=== PATIENT | male | born 1970 | race Caucasian/White ===

== ENCOUNTER 2020-05-26 14:18 | Observation (INO) ==
[2020-05-26] MEDS ORDERED: SODIUM CHLORIDE 0.9% 1,000 ML IV STA (14:41)
[2020-05-26 14:54] LABS: Basophils # 0.1 10*3/uL (0.0-0.2); Basophils % 0.5 % (0.0-0.8); Eosinophils # 0.3 10*3/uL (0.0-0.87); Eosinophils % 1.3 % (0.00-10.9); Hematocrit 44.8 VOL% (42.0-52.0); Hemoglobin 15.1 GM/DL (14.0-18.0); Immature Granulocytes % 0.9 %; Immature Granulocytes Absolute 0.17 #; Lymphocytes # 2.2 10*3/uL (1.4-4.0); Lymphocytes % 11.3 % (21.2-54.2); Mean Corpuscular HGB Conc 33.7 GM/DL (32-36); Mean Corpuscular Volume 86.7 FL (87-102); Mean Platelet Volume 10.8 FL (9.6-12.0); Monocytes % 6.2 % (1.7-12.7); Neutrophils % 79.8 % (38.7-73.9); Platelet Count 288 T/CUMM (130-400); Red Blood Count 5.17 MC/CUMM (3.8-5.5); Red Cell Distribution Width 14.2 % (9.3-17.3); White Blood Count 19.6 T/CUMM (4-12)
[2020-05-26] MEDS ORDERED: SODIUM CHLORIDE 0.9% 1,000 ML IV PRN ×3 (14:56→19:42)
[2020-05-26] MEDS ORDERED: SUCCINYLCHOLINE 200 MG/10 ML VIAL ONE ×2 (15:02→20:36)
[2020-05-26] MEDS ORDERED: LIDOCAINE 2% 5 ML VIAL ONE ×2 (15:02→20:36)
[2020-05-26] MEDS ORDERED: propofoL 200 MG/20 ML VIAL IV ONE ×2 (15:02→20:36)
[2020-05-26] MEDS ORDERED: ROCURONIUM 50 MG/5 ML VIAL IV ONE ×2 (15:02→20:36)
[2020-05-26] MEDS ORDERED: DEXAMETHASONE 4 MG/1 ML VIAL ONE (15:02)
[2020-05-26] MEDS ORDERED: ONDANSETRON 4 MG/2 ML VIAL ONE ×2 (15:02→20:36)
[2020-05-26] MEDS ORDERED: fentaNYL 100 MCG/2 ML VIAL ONE (15:03)
[2020-05-26] MEDS ORDERED: CIPROFLOXACIN INJ 400 MG in PREMIX 1 EACH IV STA (15:05)
[2020-05-26] MEDS ORDERED: MIDAZOLAM 2 MG/2 ML VIAL ONE (15:06)
[2020-05-26] MEDS ORDERED: CIPROFLOXACIN 400 MG/200 ML PREMIX IV ONE (15:09)
[2020-05-26] MEDS ORDERED: SCOPOLAMINE 1.5 MG PATCH TRANSDERM ONE (15:10)
[2020-05-26 15:25] LABS: Calcium 9.4 MG/DL (8.5-10.1); Osmolality,Calculated 281.7 MOS/KG (273-304); Potassium 3.9 MMOL/L (3.5-5.1)
[2020-05-26] MEDS ORDERED: ONDANSETRON 4 MG/2 ML VIAL IV PRN (15:53)
[2020-05-26] MEDS ORDERED: diphenhydrAMINE 50 MG/1 ML VIAL IV PRN (15:53)
[2020-05-26] MEDS ORDERED: PROMETHAZINE INJ 25 MG in SODIUM CHLORIDE 0.9% 50 ML IV PRN (15:53)
[2020-05-26] MEDS ORDERED: ALBUMIN 25% 25 GM/100 ML VIAL IV ONE (15:57)
[2020-05-26] MEDS ORDERED: CALCIUM CHLORIDE 1,000 MG/10 ML VIAL IV ONE (16:01)
[2020-05-26 16:20] LABS: Hematocrit 34.4 VOL% (42.0-52.0); Hemoglobin 11.6 GM/DL (14.0-18.0)
[2020-05-26] MEDS ORDERED: PROMETHAZINE 25 MG/1 ML VIAL ONE ×2 (16:37→20:36)
[2020-05-26] MEDS ORDERED: SEVOFLURANE 1 UNIT/15 MINUTE INH ONE ×2 (16:37→20:36)
[2020-05-26] MEDS ORDERED: LACTATED RINGERS 2,000 ML IV ONE (16:38)
[2020-05-26] MEDS ORDERED: MEPERIDINE 25 MG/1 ML VIAL ONE ×2 (16:45→17:50)
[2020-05-26] MEDS: MEPERIDINE 25 MG/1 ML VIAL IV PRN ×2 (16:50→18:00)
[2020-05-26] MEDS ORDERED: LACTATED RINGERS 1,000 ML IV SCH (17:00)
[2020-05-26 18:09] LABS: Hemoglobin 12.5 GM/DL (14.0-18.0)
[2020-05-26] MEDS ORDERED: HYDROmorphone 2 MG/1 ML VIAL ONE (18:09)
[2020-05-26] MEDS: HYDROmorphone 2 MG/1 ML VIAL IV PRN ×4 (18:15→18:30)
[2020-05-26 18:24] LABS: Hematocrit 32.6 VOL% (42.0-52.0)
[2020-05-26] MEDS ORDERED: TRANEXAMIC ACID 1,000 MG/10 ML VIAL ONE (20:30)
[2020-05-26] MEDS ORDERED: NEOSTIGMINE 10 MG/10 ML VIAL ONE (21:04)
[2020-05-26] MEDS ORDERED: GLYCOPYRROLATE 0.4 MG/2 ML VIAL ONE (21:04)
[2020-05-26] MEDS ORDERED: LABETALOL 20 MG/4 ML SYRINGE IV ONE (21:05)
[2020-05-26] MEDS ORDERED: LABETALOL 100 MG/20 ML VIAL IV ONE (21:26)
[2020-05-26 21:58] LABS: Hematocrit 36.3 VOL% (42.0-52.0); Hemoglobin 12.1 GM/DL (14.0-18.0)
[2020-05-26] MEDS: LACTATED RINGERS 1,000 ML IV SCH (22:26)
[2020-05-26 23:28] LABS: Hematocrit 35.8 VOL% (42.0-52.0); Hemoglobin 12.1 GM/DL (14.0-18.0)
[2020-05-26] MEDS: HYDROmorphone 2 MG TABLET PO PRN (23:55)
[2020-05-27] MEDS: LACTATED RINGERS 1,000 ML IV SCH ×4 (03:00→18:00)
[2020-05-27] MEDS: HYDROmorphone 2 MG TABLET PO PRN (04:02)
[2020-05-27] MEDS: HYDROmorphone 2 MG/1 ML VIAL IV PRN ×4 (05:37→16:39)
[2020-05-27 05:49] LABS: Hematocrit 31.5 VOL% (42.0-52.0); Hemoglobin 10.7 GM/DL (14.0-18.0)
[2020-05-27] MEDS: PROMETHAZINE INJ 25 MG in SODIUM CHLORIDE 0.9% 50 ML IV PRN ×2 (09:01→16:15)
[2020-05-27 10:14] LABS: Hematocrit 29.3 VOL% (42.0-52.0); Hemoglobin 9.9 GM/DL (14.0-18.0)
[2020-05-27 16:14] VITALS: BP 122/69
== END 2020-05-27 19:20 | disposition home or self-care (01) ==
LOC: N.ED 14:18 → N.3E 14:18 → N.ED 14:18 → N.3E 15:24 → UNDODEPER 15:25 → N.ED 15:25 → N.3E 15:25
PROVIDERS: ADMIT Specialist; ATTEND Specialist

== ENCOUNTER 2021-07-21 10:23 | Observation (INO) ==
[2021-07-21] MEDS ORDERED: ONDANSETRON 4 MG/2 ML VIAL IV STA (10:57)
[2021-07-21] MEDS ORDERED: SODIUM CHLORIDE 0.9% 1,000 ML IV STA (10:57)
[2021-07-21] MEDS ORDERED: PANTOPRAZOLE INJ 80 MG in SODIUM CHLORIDE 0.9% 100 ML IV STA (10:57)
[2021-07-21] MEDS ORDERED: PANTOPRAZOLE 40 MG VIAL IV ONE (11:03)
[2021-07-21 11:29] LABS: Basophils # 0.2 10*3/uL (0.0-0.2); Eosinophils # 0.2 10*3/uL (0.0-0.87); Eosinophils % 1.4 % (0.00-10.9); Hematocrit 51.2 VOL% (42.0-52.0); Hemoglobin 16.4 GM/DL (14.0-18.0); Immature Granulocytes % 4.2 %; Lymphocytes # 3.3 10*3/uL (1.4-4.0); Lymphocytes % 19.5 % (21.2-54.2); Mean Corpuscular Volume 82.6 FL (87-102); Mean Platelet Volume 11.6 FL (9.6-12.0); Monocytes % 9.1 % (1.7-12.7); NRBC # 0.02 10*3/uL; Neutrophils % 64.8 % (38.7-73.9); Platelet Count 263 T/CUMM (130-400); Red Cell Distribution Width 16.1 % (9.3-17.3); White Blood Count 16.8 T/CUMM (4-12)
[2021-07-21 11:42] LABS: INR 1.1; PT Patient Result 11.7 SECS (10.5-12.0); Partial Thromboplastin Time 21.7 SECS (23.8-32.1)
[2021-07-21 11:46] LABS: Albumin 3.4 G/DL (3.4-5.0); Bilirubin,Total 0.6 MG/DL (0.20-1.00); Calcium 8.2 MG/DL (8.5-10.1); Potassium 4.5 MMOL/L (3.5-5.1); Total Protein 6.5 G/DL (6.4-8.2)
[2021-07-21] MEDS ORDERED: HYDROmorphone 2 MG/1 ML VIAL IV STA (12:13)
[2021-07-21] MEDS ORDERED: HYDROmorphone 2 MG/1 ML VIAL ONE (12:14)
[2021-07-21 12:16] LABS: Band Neutrophils 4 % (0-10); Eosinophils 4 % (0-10); Lymphocytes 23 % (20-55); Metamyelocytes 1 %; Platelet Estimate Normal; Segmented Neutrophils 61 % (50-85); Total Cells Counted 100
[2021-07-21] MEDS ORDERED: ACETAMINOPHEN 325 MG TABLET PO PRN (12:42)
[2021-07-21] MEDS ORDERED: GLUCAGON 1 MG VIAL IM PRN (12:42)
[2021-07-21] MEDS ORDERED: DEXTROSE 10% 250 ML BAG IV PRN (12:52)
[2021-07-21] MEDS: LACTATED RINGERS 1,000 ML IV SCH ×2 (14:18→19:00)
[2021-07-21] MEDS: SODIUM CHLORIDE 0.9% 1,000 ML IV SCH ×2 (15:06→15:19)
[2021-07-21 15:48] LABS: Basophils # 0.1 10*3/uL (0.0-0.2); Basophils % 0.8 % (0.0-0.8); Eosinophils # 0.2 10*3/uL (0.0-0.87); Hematocrit 44.3 VOL% (42.0-52.0); Hemoglobin 13.9 GM/DL (14.0-18.0); Immature Granulocytes % 3.9 %; Immature Granulocytes Absolute 0.66 #; Lymphocytes # 3.6 10*3/uL (1.4-4.0); Lymphocytes % 21.5 % (21.2-54.2); Mean Corpuscular HGB Conc 31.4 GM/DL (32-36); Mean Platelet Volume 12.1 FL (9.6-12.0); Monocytes % 10.3 % (1.7-12.7); NRBC # 0.05 10*3/uL; Neutrophils % 62.5 % (38.7-73.9); Platelet Count 305 T/CUMM (130-400); Red Blood Count 5.21 MC/CUMM (3.8-5.5); Red Cell Distribution Width 15.4 % (9.3-17.3); White Blood Count 16.8 T/CUMM (4-12)
[2021-07-21 16:32] LABS: Eosinophils 1 % (0-10); Lymphocytes 23 % (20-55); Segmented Neutrophils 74 % (50-85); Total Cells Counted 100
[2021-07-21 16:33] LABS: Anisocytosis Slight; Hypochromia Slight; Platelet Estimate Normal; Polychromasia Slight
[2021-07-21 18:15] VITALS: BP 114/76
[2021-07-21] MEDS: HYDROmorphone 2 MG/1 ML VIAL IV PRN ×2 (20:18→23:19)
[2021-07-21] MEDS: PANTOPRAZOLE 40 MG VIAL IV SCH (20:20)
[2021-07-21 21:19] LABS: Hematocrit 46.2 VOL% (42.0-52.0); Hemoglobin 14.6 GM/DL (14.0-18.0)
[2021-07-22 01:39] LABS: Hematocrit 45.8 VOL% (42.0-52.0); Hemoglobin 14.3 GM/DL (14.0-18.0)
[2021-07-22] MEDS: HYDROmorphone 2 MG/1 ML VIAL IV PRN ×3 (03:08→10:20)
[2021-07-22 06:16] LABS: INR 1.1; PT Patient Result 12.5 SECS (10.5-12.0); Partial Thromboplastin Time 26.5 SECS (23.8-32.1)
[2021-07-22 06:21] LABS: Basophils # 0.1 10*3/uL (0.0-0.2); Basophils % 0.6 % (0.0-0.8); Eosinophils # 0.2 10*3/uL (0.0-0.87); Eosinophils % 1.3 % (0.00-10.9); Hematocrit 49.3 VOL% (42.0-52.0); Hemoglobin 15.1 GM/DL (14.0-18.0); Immature Granulocytes % 2.8 %; Immature Granulocytes Absolute 0.48 #; Lymphocytes % 17.1 % (21.2-54.2); Mean Corpuscular HGB Conc 30.6 GM/DL (32-36); Mean Corpuscular Volume 86.3 FL (87-102); Mean Platelet Volume 12.4 FL (9.6-12.0); Monocytes % 8.8 % (1.7-12.7); Neutrophils % 69.4 % (38.7-73.9); Platelet Count 191 T/CUMM (130-400); Red Blood Count 5.71 MC/CUMM (3.8-5.5); Red Cell Distribution Width 15.9 % (9.3-17.3); White Blood Count 17.5 T/CUMM (4-12)
[2021-07-22 06:27] LABS: Albumin 2.9 G/DL (3.4-5.0); Bilirubin,Total 0.6 MG/DL (0.20-1.00); Calcium 7.8 MG/DL (8.5-10.1); Osmolality,Calculated 281.7 MOS/KG (273-304); Potassium 4.1 MMOL/L (3.5-5.1); Total Protein 5.7 G/DL (6.4-8.2)
[2021-07-22] MEDS: PANTOPRAZOLE 40 MG VIAL IV SCH ×2 (09:17→21:09)
[2021-07-22] MEDS ORDERED: SERTRALINE 100 MG TABLET PO SCH ×2 (10:00→21:00)
[2021-07-22] MEDS: METOPROLOL SUCCINATE XL 25 MG TABLET PO SCH (10:15)
[2021-07-22] MEDS: LACTATED RINGERS 1,000 ML IV SCH ×3 (10:28→14:17)
[2021-07-22 10:42] LABS: Hematocrit 44.6 VOL% (42.0-52.0); Hemoglobin 13.9 GM/DL (14.0-18.0)
[2021-07-22] MEDS ORDERED: diphenhydrAMINE CAP 25 MG CAPSULE PO PRN (11:09)
[2021-07-22] MEDS: SODIUM CHLORIDE 0.9% 1,000 ML IV SCH (14:17)
[2021-07-22 17:18] LABS: Hematocrit 50.3 VOL% (42.0-52.0); Hemoglobin 15.5 GM/DL (14.0-18.0)
[2021-07-22] MEDS ORDERED: TAMSULOSIN 0.4 MG CAPSULE PO SCH (21:00)
[2021-07-22] MEDS ORDERED: HYDROmorphone 2 MG/1 ML VIAL IV ONE (21:22)
[2021-07-22 22:47] LABS: Hematocrit 42.7 VOL% (42.0-52.0); Hemoglobin 13.6 GM/DL (14.0-18.0)
[2021-07-23 05:56] LABS: Basophils # 0.1 10*3/uL (0.0-0.2); Basophils % 0.6 % (0.0-0.8); Eosinophils # 0.3 10*3/uL (0.0-0.87); Eosinophils % 2.8 % (0.00-10.9); Hemoglobin 13.8 GM/DL (14.0-18.0); Immature Granulocytes % 2.4 %; Immature Granulocytes Absolute 0.26 #; Lymphocytes # 2.2 10*3/uL (1.4-4.0); Mean Corpuscular HGB Conc 31.4 GM/DL (32-36); Mean Corpuscular Volume 84.3 FL (87-102); Monocytes % 8.3 % (1.7-12.7); Neutrophils % 65.9 % (38.7-73.9); Platelet Count 205 T/CUMM (130-400); Red Blood Count 5.22 MC/CUMM (3.8-5.5); Red Cell Distribution Width 15.1 % (9.3-17.3); White Blood Count 10.9 T/CUMM (4-12)
[2021-07-23 05:58] LABS: INR 1.1; PT Patient Result 11.7 SECS (10.5-12.0)
[2021-07-23 06:22] LABS: Calcium 8.4 MG/DL (8.5-10.1); Potassium 3.7 MMOL/L (3.5-5.1)
[2021-07-23] MEDS ORDERED: ROSUVASTATIN 20 MG TABLET PO SCH ×2 (09:00→21:00)
[2021-07-23] MEDS: PANTOPRAZOLE 40 MG VIAL IV SCH (09:20)
[2021-07-23] MEDS: METOPROLOL SUCCINATE XL 25 MG TABLET PO SCH (09:20)
[2021-07-23] MEDS: SODIUM CHLORIDE 0.9% 1,000 ML IV SCH ×2 (10:26→10:29)
== END 2021-07-23 14:06 | disposition home or self-care (01) ==
LOC: N.EDINP 10:23 → N.ED 10:23 → SUATTDRO 12:42 → N.ICU 18:23
PROVIDERS: ADMIT Internal Medicine; ATTEND Internal Medicine

== ENCOUNTER 2022-05-06 17:59 | Observation (INO) ==
[2022-05-06 18:32] LABS: Basophils % 0.2 % (0.0-0.8); Eosinophils % 0.2 % (0.00-10.9); Hemoglobin 15.6 GM/DL (14.0-18.0); Immature Granulocytes % 1.1 %; Immature Granulocytes Absolute 0.14 #; Lymphocytes # 0.3 10*3/uL (1.4-4.0); Lymphocytes % 2.1 % (21.2-54.2); Mean Corpuscular HGB Conc 33.2 GM/DL (32-36); Mean Corpuscular Volume 86.1 FL (87-102); Mean Platelet Volume 11.1 FL (9.6-12.0); Monocytes # 0.2 10*3/uL (0.11-0.8); Monocytes % 1.2 % (1.7-12.7); Neutrophils % 95.2 % (38.7-73.9); Platelet Count 215 T/CUMM (130-400); Red Blood Count 5.46 MC/CUMM (3.8-5.5); Red Cell Distribution Width 13.2 % (9.3-17.3)
[2022-05-06 18:40] LABS: PT Patient Result 10.9 SECS (10.1-12.1); Partial Thromboplastin Time 24.5 SECS (23.7-32.9)
[2022-05-06] MEDS ORDERED: SODIUM CHLORIDE 0.9% 1,000 ML IV STA (18:46)
[2022-05-06] MEDS ORDERED: ONDANSETRON 4 MG/2 ML VIAL IV STA (18:48)
[2022-05-06 18:49] LABS: Alanine Aminotransferase 31 U/L (16-61); Albumin 3.6 G/DL (3.4-5.0); Alkaline Phosphatase 69 U/L (45-117); Aspartate Amino Transferase 20 U/L (0-37); Blood Urea Nitrogen 18 MG/DL (7-18); Calcium 8.9 MG/DL (8.5-10.1); Carbon Dioxide 27 MMOL/L (21-32); Chloride 109 MMOL/L (98-107); Glucose 93 MG/DL (74-106); Osmolality,Calculated 282.3 MOS/KG (273-304); Potassium 3.9 MMOL/L (3.5-5.1); Sodium 141 MMOL/L (136-145); Total Protein 6.6 G/DL (6.4-8.2)
[2022-05-06 19:06] LABS: Lymphocytes 3 % (20-55); Total Cells Counted 100
[2022-05-06 19:07] LABS: Platelet Estimate Normal
[2022-05-06] MEDS ORDERED: PROMETHAZINE 25 MG/1 ML VIAL ONE (19:16)
[2022-05-06] MEDS ORDERED: MORPHINE 2 MG/1 ML SYRINGE ONE (19:16)
[2022-05-06] MEDS ORDERED: MORPHINE 2 MG/1 ML SYRINGE IV STA (19:21)
[2022-05-06] MEDS ORDERED: PROMETHAZINE 25 MG/1 ML VIAL IM STA (19:22)
[2022-05-06] MEDS ORDERED: MAGNESIUM SULF RIDER 2 GM/50 ML PREMIX IV STA (19:28)
[2022-05-06 19:36] LABS: Hyaline Casts,Urine 19 /LPF (0-3); Mucus,Urine Few /LPF (Occasional); RBC,Urine 2 /HPF (0-4)
[2022-05-06 19:37] LABS: Bilirubin,Urine Negative (Negative); Blood, Urine Negative (Negative); Glucose,Urine (UA) Negative (Negative); Ketones,Urine Trace mg/dL (Negative); Nitrite,Urine Negative (Negative); Protein,Urine Negative (Negative); Urine Appearance Clear (Clear); Urine Color Yellow (Yellow); Urine Specific Gravity >= 1.030 (1.001-1.035); Urine Urobilinogen 0.2 eU/dL (<2.0); Urine pH 5.5 (4.5-8.0)
[2022-05-06] MEDS ORDERED: LACTATED RINGERS 1,000 ML IV ONE (20:11)
[2022-05-06] MEDS ORDERED: metroNIDAZOLE INJ 500 MG/100 ML PREMIX IV STA (21:22)
[2022-05-06] MEDS ORDERED: NOREPINEPHRINE 8 MG in SODIUM CHLORIDE 0.9% 242 ML IV PRN (21:22)
[2022-05-06] MEDS ORDERED: NOREPINEPHRINE 4 MG/4 ML VIAL IV ONE (21:27)
[2022-05-06] MEDS: LEVOFLOXACIN INJ 750 MG/150 ML PREMIX IV STA ×2 (21:40→23:29)
[2022-05-06 21:51] VITALS: BP 121/80
[2022-05-06] MEDS ORDERED: MORPHINE 2 MG/1 ML SYRINGE IV PRN (22:11)
[2022-05-06] MEDS ORDERED: PROMETHAZINE 25 MG/1 ML VIAL IM PRN (22:11)
[2022-05-06] MEDS ORDERED: ACETAMINOPHEN 325 MG TABLET PO PRN (22:11)
[2022-05-06] MEDS ORDERED: SODIUM CHLORIDE 0.9% 1,000 ML IV ONE (22:27)
[2022-05-06] MEDS ORDERED: DOCUSATE SODIUM 100 MG CAPSULE PO SCH (22:30)
[2022-05-06] MEDS ORDERED: ONDANSETRON 4 MG/2 ML VIAL IV PRN (22:36)
[2022-05-06] MEDS ORDERED: cefTRIAXone 1,000 MG in SODIUM CHLORIDE 0.9% 100 ML IV SCH (23:00)
[2022-05-07] MEDS: SODIUM CHLORIDE 0.9% 1,000 ML IV SCH ×2 (00:45→06:11)
[2022-05-07] MEDS ORDERED: metroNIDAZOLE INJ 500 MG/100 ML PREMIX IV SCH (05:00)
[2022-05-07 05:15] LABS: Basophils # 0.1 10*3/uL (0.0-0.2); Basophils % 0.4 % (0.0-0.8); Eosinophils # 0.3 10*3/uL (0.0-0.87); Eosinophils % 1.6 % (0.00-10.9); Hematocrit 41.6 VOL% (42.0-52.0); Hemoglobin 13.7 GM/DL (14.0-18.0); Immature Granulocytes % 0.6 %; Immature Granulocytes Absolute 0.09 #; Lymphocytes # 0.8 10*3/uL (1.4-4.0); Lymphocytes % 5.2 % (21.2-54.2); Mean Corpuscular HGB Conc 32.9 GM/DL (32-36); Mean Corpuscular Volume 86.8 FL (87-102); Mean Platelet Volume 11.2 FL (9.6-12.0); Monocytes # 1.3 10*3/uL (0.11-0.8); Monocytes % 8.3 % (1.7-12.7); Neutrophils % 83.9 % (38.7-73.9); Platelet Count 209 T/CUMM (130-400); Red Blood Count 4.79 MC/CUMM (3.8-5.5); Red Cell Distribution Width 13.2 % (9.3-17.3); White Blood Count 15.5 T/CUMM (4-12)
[2022-05-07 05:51] LABS: Bilirubin,Total 0.4 MG/DL (0.20-1.00); Calcium 8.1 MG/DL (8.5-10.1); Osmolality,Calculated 285.8 MOS/KG (273-304); Potassium 3.9 MMOL/L (3.5-5.1); Risk Ratio 5.05; Total Protein 5.7 G/DL (6.4-8.2); VLDL Cholesterol 19.6 MG/DL
[2022-05-07] MEDS ORDERED: HYDROmorphone 1 MG/1 ML SYRINGE IV PRN (07:47)
[2022-05-07] MEDS ORDERED: PANTOPRAZOLE 40 MG VIAL IV SCH (09:00)
[2022-05-07] MEDS ORDERED: ENOXAPARIN 40 MG/0.4 ML SYRINGE SUBCUT SCH (09:00)
[2022-05-07] MEDS ORDERED: oxyCODONE/ACETAMINOPHEN 5-325 MG TABLET PO ONE (09:37)
== END 2022-05-07 10:40 | disposition home or self-care (01) ==
LOC: N.ED 17:59 → N.EDINP 17:59 → N.ICU 21:56
PROVIDERS: ADMIT Internal Medicine; ATTEND Internal Medicine